=== PATIENT | male | born 1970 | race Two or more races ===

== ENCOUNTER 2020-12-28 18:16 | Emergency (ER) | payer MEDICAID ==
[~2020-12-28] VITALS: Ht 172.7 cm; Wt 93.0 kg
[~2020-12-28 18:16] MED LIST: CITA10TA8 PO; DIPH25CA66 PO; LISI-275 PO; METF-370 PO; PROP10TA57
[2020-12-28 18:21] VITALS: BP 157/76
== END 2020-12-29 00:56 | disposition home or self-care (01) ==
LOC: ER 18:16
DX: R42 Dizziness and giddiness (principal); R06.02 Shortness of breath; R51.9 Headache, unspecified; H53.8 Other visual disturbances
CPT/HCPCS: 70450; 71045

== ENCOUNTER 2021-05-05 23:51 | Emergency (ER) | payer MEDICAID ==
[~2021-05-05] VITALS: Ht 172.7 cm; Wt 93.0 kg
[2021-05-06 01:05] LABS: Basophils # (auto) 0 10 ^3/uL (0-0.2); Basophils % (auto) 0.6 % (0.0-2.0); Eosinophils # (auto) 0.1 10 ^3/uL (0-0.8); Hematocrit 38.4 % (41.0-53.0); Hemoglobin 13.2 g/dL (13.5-17.5); Lymphocytes # (auto) 3.4 10 ^3/uL (0.4-5.4); Mean Corpuscular Hemoglobin 30.5 pg (28.0-32.0); Mean Corpuscular Hgb Conc. 34.2 g/dL (32.0-36.0); Mean Corpuscular Volume 88.9 fL (80.0-100.0); Monocytes # (auto) 0.5 10 ^3/uL (0-1.3); Monocytes % (auto) 6.5 % (0.0-12.0); Neutrophils % (auto) 41.9 % (37.0-80.0); Nucleated Red Blood Cells % 0.1 %; Platelet Count (auto) 273 10^3/uL (140-450); Red Blood Cells 4.32 10^6/uL (4.5-5.90); Red Cell Distribution Width 14.6 % (11.8-14.3)
[2021-05-06 01:17] LABS: Alanine Aminotransferase 19 U/L (16-61); Albumin 3.3 g/dL (3.4-5.0); Anion Gap 9 (5-15); Aspartate Aminotransferase 10 U/L (15-37); BUN/Creatinine Ratio 9.2; Blood Urea Nitrogen 13 mg/dL (7-18); Calcium 7.8 mg/dL (8.5-10.1); Carbon Dioxide 24 mmol/L (21-32); Chloride 103 mmol/L (98-107); GFR African American 68 mL/min; GFR Non-African American 56 mL/min; Glucose 273 mg/dL (74-106); Potassium 3.6 mmol/L (3.5-5.1); Sodium 136 mmol/L (136-145)
[2021-05-06 01:22] LABS: Alkaline Phosphatase 107 U/L (45-117); Bilirubin, Total 0.4 mg/dL (0.2-1.0); Total Protein 6.6 g/dL (6.4-8.2)
[2021-05-06 02:50] LABS: Urine Bacteria FEW /hpf (None Seen); Urine Blood Negative /uL (Negative); Urine Hyaline Cast MOD /lpf (0 - 2); Urine Specific Gravity 1.008 (1.001-1.035); Urine WBC 1 /hpf (0 - 3)
[2021-05-06 03:30] VITALS: BP 121/69
== END 2021-05-06 06:48 | disposition home or self-care (01) ==
LOC: EDBD 23:51 → ER 23:51
DX: F41.0 Panic disorder [episodic paroxysmal anxiety] (principal)
CPT/HCPCS: 36415; 80053; 81001; 84484; 85025; 93005

== ENCOUNTER → 2021-05-06 00:20 | Emergency (ER) | payer MEDICAID | END | disposition left against medical advice (07) | LOC: ER 00:20 | DX: R06.02 Shortness of breath (principal); Z53.21 Procedure and treatment not carried out due to patient leaving prior to being seen by health care provider ==

== ENCOUNTER 2021-06-27 11:54 | Emergency (ER) | payer MEDICAID ==
[~2021-06-27] VITALS: Ht 172.7 cm; Wt 99.8 kg
[2021-06-27] MEDS ORDERED: LORazepam 2MG/ML-1ML VIAL IV ONE (12:00)
[2021-06-27] MEDS ORDERED: SODIUM CHLORIDE 0.9% 1,000 ML IV ONE ×2 (12:00)
[2021-06-27 12:43] LABS: Basophils # (auto) 0 10 ^3/uL (0-0.2); Basophils % (auto) 0.9 % (0.0-2.0); Eosinophils # (auto) 0.1 10 ^3/uL (0-0.8); Eosinophils % (auto) 1.7 % (0.0-7.0); Hematocrit 39.5 % (41.0-53.0); Hemoglobin 13.8 g/dL (13.5-17.5); Lymphocytes # (auto) 1.2 10 ^3/uL (0.4-5.4); Lymphocytes % (auto) 25.7 % (10.0-50.0); Mean Corpuscular Hemoglobin 31.8 pg (28.0-32.0); Mean Corpuscular Hgb Conc. 34.8 g/dL (32.0-36.0); Mean Corpuscular Volume 91.3 fL (80.0-100.0); Monocytes # (auto) 0.2 10 ^3/uL (0-1.3); Neutrophils # (auto) 3.2 10 ^3/uL (1.6-8.6); Neutrophils % (auto) 66.7 % (37.0-80.0); Nucleated Red Blood Cells % 0.2 %; Red Blood Cells 4.33 10^6/uL (4.5-5.90); Red Cell Distribution Width 15.6 % (11.8-14.3); White Blood Cell 4.8 10^3/uL (4.4-10.8)
[2021-06-27 13:02] LABS: Alanine Aminotransferase 49 U/L (16-61); Anion Gap 11 (5-15); Blood Urea Nitrogen 16 mg/dL (7-18); Calcium 7.4 mg/dL (8.5-10.1); Carbon Dioxide 29 mmol/L (21-32); Chloride 96 mmol/L (98-107); Glucose 264 mg/dL (74-106); Potassium 3.1 mmol/L (3.5-5.1); Sodium 136 mmol/L (136-145)
[2021-06-27 13:07] LABS: Alkaline Phosphatase 160 U/L (45-117); Aspartate Aminotransferase 54 U/L (15-37); Bilirubin, Total 0.8 mg/dL (0.2-1.0); GFR African American 72 mL/min; GFR Non-African American 60 mL/min; Total Protein 6.9 g/dL (6.4-8.2)
[2021-06-27 14:28] VITALS: BP 161/79
[2021-06-27] MEDS ORDERED: LORazepam 0.5 MG TAB PO ONE (14:45)
== END 2021-06-27 15:53 | disposition home or self-care (01) ==
LOC: EDBD 11:54 → ER 11:54
DX: M62.838 Other muscle spasm (principal); F41.9 Anxiety disorder, unspecified; E11.9 Type 2 diabetes mellitus without complications; I10 Essential (primary) hypertension; Z88.0 Allergy status to penicillin
CPT/HCPCS: 36415; 80053; 84484; 85025; 96360; 99283; J2060; J7030

== ENCOUNTER 2021-07-19 16:37 | Emergency (ER) | payer MEDICAID ==
[~2021-07-19] VITALS: Ht 167.6 cm; Wt 90.7 kg
[2021-07-19] MEDS ORDERED: SODIUM CHLORIDE 0.9% 1,000 ML IV ONE (16:45)
[2021-07-19 17:00] VITALS: BP 153/80
[2021-07-19 17:46] LABS: Basophils # (auto) 0.1 10 ^3/uL (0-0.2); Basophils % (auto) 1.4 % (0.0-2.0); Eosinophils # (auto) 0.1 10 ^3/uL (0-0.8); Eosinophils % (auto) 2.8 % (0.0-7.0); Hematocrit 39.7 % (41.0-53.0); Hemoglobin 13.9 g/dL (13.5-17.5); Lymphocytes # (auto) 1.8 10 ^3/uL (0.4-5.4); Lymphocytes % (auto) 38.1 % (10.0-50.0); Mean Corpuscular Hemoglobin 32.9 pg (28.0-32.0); Mean Corpuscular Hgb Conc. 35.1 g/dL (32.0-36.0); Mean Corpuscular Volume 93.9 fL (80.0-100.0); Monocytes # (auto) 0.2 10 ^3/uL (0-1.3); Monocytes % (auto) 4.7 % (0.0-12.0); Neutrophils # (auto) 2.5 10 ^3/uL (1.6-8.6); Nucleated Red Blood Cells % 0.4 %; Red Blood Cells 4.23 10^6/uL (4.5-5.90); Red Cell Distribution Width 16.4 % (11.8-14.3); White Blood Cell 4.7 10^3/uL (4.4-10.8)
[2021-07-19 17:50] LABS: Alanine Aminotransferase 89 U/L (16-61); Albumin 2.7 g/dL (3.4-5.0); Anion Gap 15 (5-15); Aspartate Aminotransferase 149 U/L (15-37); BUN/Creatinine Ratio 5.5; Blood Urea Nitrogen 7 mg/dL (7-18); Calcium 6.8 mg/dL (8.5-10.1); Carbon Dioxide 25 mmol/L (21-32); Chloride 95 mmol/L (98-107); GFR African American 76 mL/min; GFR Non-African American 62 mL/min; Glucose 183 mg/dL (74-106); Sodium 135 mmol/L (136-145)
[2021-07-19 17:58] LABS: Alkaline Phosphatase 147 U/L (45-117); Bilirubin, Total 0.7 mg/dL (0.2-1.0); Total Protein 6.5 g/dL (6.4-8.2)
[2021-07-19 18:16] LABS: Potassium 2.7 mmol/L (3.5-5.1)
[2021-07-19] MEDS ORDERED: POTASSIUM CHL 20 Meq TABLET PO ONE (18:30)
== END 2021-07-20 00:36 | disposition home or self-care (01) ==
LOC: EDBD 16:37 → EDUNIT# 16:37 → ER 16:37
DX: F41.9 Anxiety disorder, unspecified (principal); F10.10 Alcohol abuse, uncomplicated; F32.9 Major depressive disorder, single episode, unspecified; F17.210 Nicotine dependence, cigarettes, uncomplicated; J44.9 Chronic obstructive pulmonary disease, unspecified; E11.9 Type 2 diabetes mellitus without complications; I10 Essential (primary) hypertension; Y90.8 Blood alcohol level of 240 mg/100 ml or more; Z90.49 Acquired absence of other specified parts of digestive tract; Z88.0 Allergy status to penicillin; Z79.84 Long term (current) use of oral hypoglycemic drugs; Z79.899 Other long term (current) drug therapy
CPT/HCPCS: 36415; 80053; 80320; 84484; 85025

== ENCOUNTER 2023-09-08 12:45 | Inpatient (IN) | payer MEDICAID ==
[~2023-09-08] VITALS: Ht 170.2 cm; Wt 83.3 kg
[~2023-09-08 12:45] MED LIST changes: +ARIP1TAB63 PO; +DIVA500T13 PO; +GABA-339 PO; +LISI20TA56 PO; +PANT40T PO; -PROP10TA57; +PROP1TAB51
[2023-09-08 14:16] LABS: Urine Bacteria NONE SEEN /hpf (None Seen); Urine Blood 3+ /uL (Negative); Urine Clarity HAZY (Clear); Urine Color Yellow (Yellow); Urine Protein, UAD 3+ (Negative); Urine Specific Gravity 1.017 (1.001-1.035); Urine Urobilinogen Normal (Negative); Urine WBC 337 /hpf (0 - 3); Urine WBC Clumps PRESENT /hpf (None Seen)
[2023-09-08] MEDS ORDERED: SODIUM CHLORIDE 0.9% 1,000 ML IV ONE ×2 (15:30)
[2023-09-08 15:55] LABS: Basophils # (auto) 0 10 ^3/uL (0-0.2); Basophils % (auto) 0.1 % (0.0-2.0); Eosinophils # (auto) 0.1 10 ^3/uL (0-0.8); Eosinophils % (auto) 0.4 % (0.0-7.0); Hematocrit 37.5 % (41.0-53.0); Hemoglobin 12.9 g/dL (13.5-17.5); Lymphocytes # (auto) 1.5 10 ^3/uL (0.4-5.4); Lymphocytes % (auto) 8.4 % (10.0-50.0); Mean Corpuscular Hemoglobin 28.7 pg (28.0-32.0); Mean Corpuscular Hgb Conc. 34.2 g/dL (32.0-36.0); Mean Corpuscular Volume 83.8 fL (80.0-100.0); Monocytes # (auto) 0.9 10 ^3/uL (0-1.3); Monocytes % (auto) 5.5 % (0.0-12.0); Neutrophils # (auto) 14.7 10 ^3/uL (1.6-8.6); Neutrophils % (auto) 85.6 % (37.0-80.0); Red Blood Cells 4.48 10^6/uL (4.5-5.90); Red Cell Distribution Width 13.5 % (11.8-14.3); White Blood Cell 17.2 10^3/uL (4.4-10.8)
[2023-09-08 16:12] LABS: Alanine Aminotransferase 11 U/L (7-40); Albumin 4.4 g/dL (3.2-4.8); Alkaline Phosphatase 147 U/L (46-116); Anion Gap 7 (5-15); Aspartate Aminotransferase 14 U/L (13-40); BUN/Creatinine Ratio 10.9 (10.0-20.0); Bilirubin, Total 1.9 mg/dL (0.2-1.0); Blood Urea Nitrogen 20 mg/dL (9-23); Calcium 9.4 mg/dL (8.7-10.4); Carbon Dioxide 28 mmol/L (20-30); Chloride 96 mmol/L (98-107); Glucose 350 mg/dL (74-106); Potassium 4.3 mmol/L (3.5-5.1); Sodium 131 mmol/L (136-145); Total Protein 6.5 g/dL (5.7-8.2)
[2023-09-08 16:21] LABS: INR 1.02 (0.9-1.15); Partial Thromboplastin Time 32.5 SEC (24.5-34.5); Prothrombin Time 10.7 sec (9.3-11.8)
[2023-09-08] MEDS ORDERED: InsuLIN REG 1unit/0.01ml Soln (100units/ml) IV ONE (16:30)
[2023-09-08] MEDS ORDERED: DEXTROSE (50%) 50ML SYRG IV PRN (18:45)
[2023-09-08] MEDS ORDERED: levoFLOXacin 500MG 100 ML IV ONE (18:45)
[2023-09-08] MEDS ORDERED: DOCUSATE SOD 100 MG CAP PO PRN (18:45)
[2023-09-08] MEDS ORDERED: ALBUTEROL SULF 2.5 MG/0.5ML(0.5%) NEB SOLN NEB PRN (18:45)
[2023-09-08] MEDS ORDERED: hydrALAZINE HCL 20 MG/ML VL IV PRN (18:45)
[2023-09-08] MEDS ORDERED: IPRATROPIUM BROM 0.5 MG/2.5ML INH SOL NEB PRN (18:45)
[2023-09-08 19:54] VITALS: BP 127/60; PULSE 98; RESP 18; TEMP 98.7; O2SAT 98
[2023-09-08 22:36] LABS: Hematocrit 38.4 % (41.0-53.0); Hemoglobin 12.8 g/dL (13.5-17.5)
[2023-09-08 23:36] LABS: Creatinine, Urine 59.25 mg/dL (30.0-125.0)
[2023-09-09] MEDS: InsuLIN REG 1unit/0.01ml Soln (100units/ml) SC SCH ×5 (00:29→22:12)
[2023-09-09] MEDS: GABAPENTIN 300 MG CAP PO SCH ×4 (00:30→22:01)
[2023-09-09] MEDS: ACCU-CHEK COMFORT CURVE STRIP VI SCH ×5 (00:30→22:01)
[2023-09-09] MEDS: SODIUM CHLORIDE 0.9% 1,000 ML IV SCH ×4 (01:37→19:45)
[2023-09-09] MEDS: MORPHINE SULFATE INJ 2 MG/ml SYRG IV PRN ×2 (04:01→09:12)
[2023-09-09] MEDS: ONDANSETRON HCL 4 MG/2 ML VIAL IV PRN ×2 (04:15→09:12)
[2023-09-09] MEDS ORDERED: HYDROmorphone HCL 2 MG/ML VL/or syr IV ONE (05:00)
[2023-09-09 07:11] LABS: Basophils # (auto) 0 10 ^3/uL (0-0.2); Basophils % (auto) 0.2 % (0.0-2.0); Eosinophils # (auto) 0.1 10 ^3/uL (0-0.8); Eosinophils % (auto) 0.3 % (0.0-7.0); Hematocrit 40.8 % (41.0-53.0); Hemoglobin 13.7 g/dL (13.5-17.5); Lymphocytes # (auto) 1.1 10 ^3/uL (0.4-5.4); Lymphocytes % (auto) 5.9 % (10.0-50.0); Mean Corpuscular Hemoglobin 28.5 pg (28.0-32.0); Mean Corpuscular Hgb Conc. 33.7 g/dL (32.0-36.0); Mean Corpuscular Volume 84.6 fL (80.0-100.0); Monocytes % (auto) 5.4 % (0.0-12.0); Neutrophils # (auto) 16.2 10 ^3/uL (1.6-8.6); Neutrophils % (auto) 88.2 % (37.0-80.0); Red Blood Cells 4.83 10^6/uL (4.5-5.90); Red Cell Distribution Width 13.3 % (11.8-14.3); White Blood Cell 18.3 10^3/uL (4.4-10.8)
[2023-09-09 07:18] LABS: Albumin 4.7 g/dL (3.2-4.8); Alkaline Phosphatase 143 U/L (46-116); Anion Gap 9 (5-15); Aspartate Aminotransferase 10 U/L (13-40); BUN/Creatinine Ratio 9.4 (10.0-20.0); Blood Urea Nitrogen 14 mg/dL (9-23); Calcium 9.4 mg/dL (8.7-10.4); Carbon Dioxide 23 mmol/L (20-30); Chloride 100 mmol/L (98-107); Potassium 3.9 mmol/L (3.5-5.1); Sodium 132 mmol/L (136-145)
[2023-09-09 07:19] LABS: Bilirubin, Total 1.4 mg/dL (0.2-1.0); Total Protein 7.5 g/dL (5.7-8.2)
[2023-09-09 07:27] LABS: Alanine Aminotransferase 9 U/L (7-40); Glucose 235 mg/dL (74-106)
[2023-09-09] MEDS: CITALOPRAM HYDROBR 20 MG TAB PO SCH (07:45)
[2023-09-09] MEDS: PANTOPRAZOLE 40 MG TAB PO SCH (07:45)
[2023-09-09] MEDS: ARIPIPRAZOLE 30 MG PO SCH (07:46)
[2023-09-09] MEDS ORDERED: levoFLOXacin 250MG 50 ML IV SCH (10:00)
[2023-09-09 10:13] LABS: Hemoglobin 12.6 g/dL (13.5-17.5)
[2023-09-09 11:25] VITALS: O2SAT 98
[2023-09-09 13:00] VITALS: BP 161/73; PULSE 80; RESP 18; TEMP 98.8; O2SAT 98
[2023-09-09 13:20] VITALS: PULSE 78; RESP 18; O2SAT 99
[2023-09-09] MEDS ORDERED: MELO7.5T7 PO (13:25)
[2023-09-09] MEDS ORDERED: HYDR-4072 PO (13:25)
[2023-09-09] MEDS ORDERED: GABA800T97 PO (15:11)
[2023-09-09 17:17] VITALS: BP 143/79; PULSE 84; RESP 20; TEMP 98.3; O2SAT 98
[2023-09-09] MEDS ORDERED: ACETAMINOPHEN 325 MG TAB PO PRN (18:00)
[2023-09-09] MEDS: HYDROcodone-ACET 5/325MG TAB PO PRN (18:13)
[2023-09-09 19:22] VITALS: O2SAT 98
[2023-09-09 22:00] VITALS: BP 137/58; PULSE 69; RESP 16; TEMP 98.3; O2SAT 99
[2023-09-09 22:15] LABS: Hematocrit 34.5 % (41.0-53.0); Hemoglobin 11.8 g/dL (13.5-17.5)
[2023-09-10] MEDS: SODIUM CHLORIDE 0.9% 1,000 ML IV SCH ×3 (04:07→21:04)
[2023-09-10 05:00] VITALS: BP 130/57; PULSE 83; RESP 16; TEMP 98.3; O2SAT 100
[2023-09-10] MEDS: ACCU-CHEK COMFORT CURVE STRIP VI SCH ×4 (05:44→21:19)
[2023-09-10] MEDS: GABAPENTIN 300 MG CAP PO SCH ×3 (05:53→21:19)
[2023-09-10] MEDS: InsuLIN REG 1unit/0.01ml Soln (100units/ml) SC SCH ×4 (05:54→21:20)
[2023-09-10 09:00] VITALS: BP 127/47; PULSE 82; RESP 16; TEMP 98.4; O2SAT 99
[2023-09-10] MEDS: PANTOPRAZOLE 40 MG TAB PO SCH (09:15)
[2023-09-10] MEDS: CITALOPRAM HYDROBR 20 MG TAB PO SCH (09:16)
[2023-09-10] MEDS: HYDROcodone-ACET 5/325MG TAB PO PRN ×3 (09:16→21:21)
[2023-09-10] MEDS: ARIPIPRAZOLE 30 MG PO SCH (09:17)
[2023-09-10 13:00] VITALS: BP 156/80; PULSE 81; RESP 14; TEMP 97.7; O2SAT 99
[2023-09-10 17:00] VITALS: BP 132/75; PULSE 71; RESP 18; TEMP 97.9; O2SAT 99
[2023-09-10] MEDS: MORPHINE SULFATE INJ 2 MG/ml SYRG IV PRN (17:44)
[2023-09-10 19:30] VITALS: O2SAT 98
[2023-09-10 22:00] VITALS: BP 145/74; PULSE 77; RESP 16; TEMP 97.4; O2SAT 99
[2023-09-11] MEDS: HYDROcodone-ACET 5/325MG TAB PO PRN (03:59)
[2023-09-11] MEDS: SODIUM CHLORIDE 0.9% 1,000 ML IV SCH ×2 (04:43→13:25)
[2023-09-11 05:00] VITALS: BP 148/72; PULSE 73; RESP 16; TEMP 97.6; O2SAT 99
[2023-09-11] MEDS: GABAPENTIN 300 MG CAP PO SCH ×2 (05:21→14:00)
[2023-09-11] MEDS: InsuLIN REG 1unit/0.01ml Soln (100units/ml) SC SCH ×4 (06:28→17:00)
[2023-09-11] MEDS: ACCU-CHEK COMFORT CURVE STRIP VI SCH ×3 (06:28→17:00)
[2023-09-11 07:20] VITALS: O2SAT 98
[2023-09-11 08:40] VITALS: BP 135/65; PULSE 72; RESP 18; TEMP 98.3; O2SAT 99
[2023-09-11 09:08] LABS: Hepatitis B Surface Antigen Negative (Negative)
[2023-09-11 09:31] LABS: Hepatitis C Antibody Negative (Negative)
[2023-09-11] MEDS: ARIPIPRAZOLE 30 MG PO SCH (10:00)
[2023-09-11] MEDS: PANTOPRAZOLE 40 MG TAB PO SCH (10:25)
[2023-09-11] MEDS: CITALOPRAM HYDROBR 20 MG TAB PO SCH (10:25)
[2023-09-11 12:40] VITALS: BP 145/65; PULSE 66; RESP 19; TEMP 98.3; O2SAT 100
[2023-09-11] MEDS ORDERED: CIPR-173 PO (14:19)
== END 2023-09-11 18:17 | disposition home or self-care (01) | DRG 720 ==
LOC: ER 12:45 → OVERFLOW 18:42 → WEST WING 09-09 12:38
PROVIDERS: ADMIT Nurse Practitioner Family; ATTEND Family Medicine
DX: A41.51 Sepsis due to Escherichia coli [E. coli] (principal); N17.9 Acute kidney failure, unspecified; E87.1 Hypo-osmolality and hyponatremia; J44.1 Chronic obstructive pulmonary disease with (acute) exacerbation; D64.9 Anemia, unspecified; E11.42 Type 2 diabetes mellitus with diabetic polyneuropathy; E11.65 Type 2 diabetes mellitus with hyperglycemia; N30.01 Acute cystitis with hematuria; F32.A Depression, unspecified; N10 Acute pyelonephritis; F17.210 Nicotine dependence, cigarettes, uncomplicated; R74.01 Elevation of levels of liver transaminase levels; F12.90 Cannabis use, unspecified, uncomplicated; I10 Essential (primary) hypertension; K59.00 Constipation, unspecified; K57.30 Diverticulosis of large intestine without perforation or abscess without bleeding; Z88.0 Allergy status to penicillin; Z90.49 Acquired absence of other specified parts of digestive tract
CPT/HCPCS: 36415; 74176; 80053; 81001; 82570; 82962; 83036; 83605; 84300; 84484; 85014; 85018; 85025; 85610; 85730; 86803; 86850; 86900; 86901; 87040; 87086; 87088; 87186; 87340; G0378; J1815; J1956; J2405

== ENCOUNTER 2024-07-31 18:26 | Emergency (ER) | payer MEDICAID ==
[~2024-07-31] VITALS: Ht 170.2 cm; Wt 80.3 kg
[~2024-07-31 18:26] MED LIST changes: +CIPR-173 PO; -CITA10TA8 PO; -DIPH25CA66 PO; -DIVA500T13 PO; +GABA800T97 PO; +HYDR-4072 PO; -LISI-275 PO
[2024-07-31] MEDS: ACETAMINOPHEN 325 MG TAB PO ONE (18:46)
[2024-08-01] MEDS: KETOROLAC TROMETH 60MG/2ML VIAL IM ONE (00:26)
[2024-08-01 00:43] VITALS: BP 125/61; TEMP 99
[2024-08-01 00:44] VITALS: PULSE 106; RESP 18; O2SAT 100
== END 2024-08-01 03:05 | disposition home or self-care (01) ==
LOC: ER 18:26
DX: M25.521 Pain in right elbow (principal); J44.9 Chronic obstructive pulmonary disease, unspecified; E11.9 Type 2 diabetes mellitus without complications; F12.10 Cannabis abuse, uncomplicated; I10 Essential (primary) hypertension; R42 Dizziness and giddiness; Z88.0 Allergy status to penicillin; Z90.49 Acquired absence of other specified parts of digestive tract; F17.210 Nicotine dependence, cigarettes, uncomplicated
CPT/HCPCS: 73070; 96372; 99283; J1885